=== PATIENT | male | born 1965 | race African-American/Black ===

== ENCOUNTER 2017-04-07 21:11 | Inpatient (IN) | payer BC ==
[~2017-04-07] VITALS: Ht 174 cm; Wt 85.3 kg
[~2017-04-07 21:11] MED LIST: NOHOMEMEDS; PERCOCET 5/31 TABLET PO; VALIUM5 MG PO
[2017-04-08 16:45] VITALS: BP 138/85
[2017-04-08 20:40] VITALS: BP 128/71
[2017-04-09] VITALS (7 sets, daily range): BP systolic 102–133; BP diastolic 56–76
[2017-04-10 03:48] VITALS: BP 124/73
[2017-04-10 07:13] LABS: HEMATOCRIT 38.3 % (38.0-50.0); MCH 29.1 PG (29.0-34.0); MCHC 32.6 G/DL (30.0-36.0); MCV 89.1 FL (86-99); MEAN PLAT.VOLUME 9.4 uM^3 (9.0-12.4); PLATELET COUNT 168 K/uL (156-360); RBC DIS.WIDTH-SD 45.1 % (39-53); WHITE BLOOD COUNT 7.6 K/uL (4.1-10.2)
[2017-04-10 07:35] VITALS: BP 113/61
[2017-04-10 07:37] LABS: ANION GAP 6 MEQ/L (2-14); CHLORIDE 103 MEQ/L (99-109); GFR ESTIMATE (CALCULATED) > 59 mL/min/; GLUCOSE 98 mg/dL (70-99); POTASSIUM 3.8 MEQ/L (3.7-5.4); SAMPLE HEMOLYSIS CHECK 0; SAMPLE ICTERIC CHECK 0; SAMPLE LIPEMIA CHECK 0; SODIUM 138 MEQ/L (136-147); UREA NITROGEN (BUN) 11 mg/dL (9-23)
[2017-04-10 15:30] VITALS: BP 117/58
[2017-04-10 19:25] VITALS: BP 161/78
[2017-04-10 23:40] VITALS: BP 134/71
[2017-04-11 03:00] VITALS: BP 129/69
[2017-04-11 06:41] LABS: HEMATOCRIT 40.1 % (38.0-50.0); MCHC 33.9 G/DL (30.0-36.0); MCV 88.3 FL (86-99); MEAN PLAT.VOLUME 9.2 uM^3 (9.0-12.4); PLATELET COUNT 185 K/uL (156-360); RBC DIS.WIDTH-CV 13.7 % (11.8-14.6); RBC DIS.WIDTH-SD 44.7 % (39-53); RED BLOOD COUNT 4.54 M/uL (4.00-5.50); WHITE BLOOD COUNT 7.8 K/uL (4.1-10.2)
[2017-04-11 07:14] VITALS: BP 141/75
[2017-04-11 07:14] LABS: ANION GAP 8 MEQ/L (2-14); CHLORIDE 104 MEQ/L (99-109); GFR ESTIMATE (CALCULATED) > 59 mL/min/; GLUCOSE 89 mg/dL (70-99); SAMPLE HEMOLYSIS CHECK 0; SAMPLE ICTERIC CHECK 0; SAMPLE LIPEMIA CHECK 0; SODIUM 141 MEQ/L (136-147); UREA NITROGEN (BUN) 8 mg/dL (9-23)
[2017-04-11 11:10] VITALS: BP 156/85
[2017-04-11 15:56] VITALS: BP 136/81
[2017-04-11 16:03] VITALS: BP 136/81
[2017-04-12 00:18] VITALS: BP 157/94
[2017-04-12 07:08] LABS: HEMATOCRIT 41.9 % (38.0-50.0); MCH 29.2 PG (29.0-34.0); MCHC 33.4 G/DL (30.0-36.0); MCV 87.3 FL (86-99); PLATELET COUNT 209 K/uL (156-360); RBC DIS.WIDTH-CV 13.6 % (11.8-14.6); RBC DIS.WIDTH-SD 43.6 % (39-53); WHITE BLOOD COUNT 9.5 K/uL (4.1-10.2)
[2017-04-12 07:29] LABS: ANION GAP 8 MEQ/L (2-14); CHLORIDE 103 MEQ/L (99-109); GFR ESTIMATE (CALCULATED) > 59 mL/min/; GLUCOSE 104 mg/dL (70-99); SAMPLE HEMOLYSIS CHECK 0; SAMPLE ICTERIC CHECK 0; SAMPLE LIPEMIA CHECK 0; SODIUM 140 MEQ/L (136-147); UREA NITROGEN (BUN) 7 mg/dL (9-23)
[2017-04-12 07:48] VITALS: BP 146/78
[2017-04-12 16:11] VITALS: BP 146/87
[2017-04-12 23:42] VITALS: BP 143/88
[2017-04-13 07:20] VITALS: BP 121/75
[2017-04-13 07:51] LABS: MCH 29.3 PG (29.0-34.0); MCHC 33.4 G/DL (30.0-36.0); MCV 87.6 FL (86-99); MEAN PLAT.VOLUME 9.1 uM^3 (9.0-12.4); PLATELET COUNT 203 K/uL (156-360); RBC DIS.WIDTH-CV 13.8 % (11.8-14.6); RED BLOOD COUNT 4.68 M/uL (4.00-5.50); WHITE BLOOD COUNT 6.9 K/uL (4.1-10.2)
[2017-04-13 08:14] LABS: ANION GAP 9 MEQ/L (2-14); CHLORIDE 104 MEQ/L (99-109); GFR ESTIMATE (CALCULATED) > 59 mL/min/; GLUCOSE 102 mg/dL (70-99); POTASSIUM 4.1 MEQ/L (3.7-5.4); SAMPLE HEMOLYSIS CHECK 0; SAMPLE ICTERIC CHECK 0; SAMPLE LIPEMIA CHECK 0; SODIUM 139 MEQ/L (136-147); UREA NITROGEN (BUN) 8 mg/dL (9-23)
[2017-04-13] MEDS ORDERED: TAMSULOSIN HCL0.4 MG PO (15:07)
[2017-04-13] MEDS ORDERED: OXAYDO5 MG PO (15:07)
[2017-04-13] MEDS ORDERED: LO-DOSE ASPIRIN81 M2 PO (15:11)
== END 2017-04-13 15:29 | disposition home or self-care (01) | DRG 331 ==
LOC: 2SOUTH → ENRESERV 21:11 → 2EAST 04-08 09:20 → 2SOUTH 04-08 09:20 → EDSTATUS 04-08 11:31 → SDC 04-08 11:31 → 2SOUTH 04-08 11:33 → ENRESERV 04-08 11:42 → 2SOUTH 04-08 13:00 → ENRESERV 04-08 14:26 → 2EAST 04-08 16:26
PROVIDERS: Surgery
PROC: 0DTF0ZZ Resection of Right Large Intestine, Open Approach (ICD-10-PCS; principal; 2017-04-08)
DX: C18.0 Malignant neoplasm of cecum (principal); K42.9 Umbilical hernia without obstruction or gangrene; Z80.42 Family history of malignant neoplasm of prostate; Z83.3 Family history of diabetes mellitus; Z82.49 Family history of ischemic heart disease and other diseases of the circulatory system; R33.8 Other retention of urine; N40.1 Benign prostatic hyperplasia with lower urinary tract symptoms
CPT/HCPCS: 80048; 85027; 86850; 86900; 86901; 88309; 90686; J0131; J1100; J1170; J1885; J2001; J2250; J2405; J2710; J2795; J3010; J3475; J7120; S0020